=== PATIENT | male | born 1965 | race Caucasian/White ===

== ENCOUNTER 2021-05-22 17:32 | Emergency (ER) | payer OTHER ==
[~2021-05-22] VITALS: Ht 165.1 cm; Wt 102.2 kg
--- NOTE | 2021-05-22 17:55 | NUR ---
RN and PA assessments completed.
--- NOTE | 2021-05-22 18:00 | NUR ---
Pt up to give UA sample now.
--- NOTE | 2021-05-22 18:06 | NUR ---
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
[2021-05-22] MEDS ORDERED: KETOROLAC 30 MG/1 ML ONE (18:13)
[2021-05-22] MEDS ORDERED: LISINOPRI (18:21)
[2021-05-22] MEDS ORDERED: [UNRECOGNIZED DRUG - OTHER] (18:21)
[2021-05-22] MEDS ORDERED: estradiol (18:21)
[2021-05-22] MEDS ORDERED: [UNRECOGNIZED DRUG - OTHER] (18:22)
[2021-05-22] MEDS ORDERED: hydrochlorothiazide (18:22)
--- NOTE | 2021-05-22 18:22 | NUR ---
Pt medicated with aseptic technique for pain. packaging tech present for draw. Med rec completed as able. Pt education on keeping list of meds with doses and how often he takes each per day given with stated understanding.
[2021-05-22 18:30] LABS: BASOPHILS % (AUTO) 1 % (0-1); EOSINOPHILS % (AUTO) 1 % (1-7); LYMPHOCYTES % (AUTO) 18 % (22-44); MEAN CORPUSCULAR HEMOGLOBIN 26.8 pg (27.5-34.5); MEAN CORPUSCULAR HGB CONC 33.7 g/dL (33.2-36.2); MEAN PLATELET VOLUME 8.6 fL (7.4-10.4); MONOCYTES % (AUTO) 6 % (2-9); NEUTROPHILS % (AUTO) 75 % (42-75); PLATELET COUNT 217 x10^3/uL (130-400); RED BLOOD COUNT 4.73 x10^6/uL (4.38-5.82); RED CELL DISTRIBUTION WIDTH 13.4 % (9.4-14.8)
[2021-05-22] MEDS ORDERED: KETOROLAC 30 MG/1 ML IM ONE (18:30)
[2021-05-22 18:35] LABS: ALBUMIN 3.5 g/dL (3.4-5.0); CALCIUM 8.9 mg/dL (8.5-10.1); CHLORIDE 108 mmol/L (98-107)
[2021-05-22 18:35] LABS: MICROSCOPIC NOT IND
[2021-05-22 18:37] LABS: CREATININE 0.59 mg/dL (0.7-1.3)
[2021-05-22 19:31] VITALS: BP 140/81
[2021-05-22 19:50] LABS: ANION GAP 1 mmol/L (5-15)
== END 2021-05-22 19:33 | disposition home or self-care (01) ==
LOC: ED 18:02
DX: S39.012A Strain of muscle, fascia and tendon of lower back, initial encounter (principal); R10.9 Unspecified abdominal pain; R00.0 Tachycardia, unspecified; I10 Essential (primary) hypertension; W18.30XA Fall on same level, unspecified, initial encounter; Y93.89 Activity, other specified; Y92.89 Other specified places as the place of occurrence of the external cause; Y99.8 Other external cause status
CPT/HCPCS: 36415; 74018; 76770; 80048; 81003; 82040; 85025; 96372; 99285; J1885